=== PATIENT | male | born 1945 | race Caucasian/White ===

== ENCOUNTER 2017-09-13 10:58 | Outpatient (CLI) | payer MEDICARE, OTHER ==
[2017-09-13 12:55] LABS: BASOPHILS % (AUTO) 0.4 %; EOSINOPHILS # (AUTO) 0.2 10^3/uL (0.0-0.7); EOSINOPHILS % (AUTO) 4.1 %; HCT - HEMATOCRIT 43.3 % (42.0-52.0); HGB - HEMOGLOBIN 14.7 g/dL (14.0-18.0); LYMPHOCYTES # (AUTO) 1.8 10^3/uL (1.5-3.5); MEAN CORPUSCULAR HEMOGLOBIN 30.6 pg (27.0-31.0); MEAN CORPUSCULAR HGB CONC 33.8 g/dL (32.0-36.0); MEAN CORPUSCULAR VOLUME 90.5 fL (80.0-94.0); MEAN PLATELET VOLUME 8.1 fL (7.4-11.4); MONOCYTES # (AUTO) 0.5 10^3/uL (0.0-1.0); MONOCYTES % (AUTO) 9.1 %; NEUTROPHILS # (AUTO) 3.2 10^3/uL (1.5-6.6); NEUTROPHILS % (AUTO) 55.4 %; NUCLEATED RED BLOOD CELLS AUTO 0.1 /100WBC; RED BLOOD COUNT 4.79 10^6/uL (4.70-6.10); RED CELL DISTRIBUTION WIDTH 13.3 % (12.0-15.0); UNCORRECTED WHITE BLOOD COUNT 5.8 x10^3/uL; WHITE BLOOD COUNT 5.8 x10^3/uL (4.8-10.8)
[2017-09-13 13:28] LABS: ALBUMIN/GLOBULIN RATIO 1.3 (1.0-2.2); BILIRUBIN,TOTAL 0.8 mg/dL (0.2-1.0); BUN - BLOOD UREA NITROGEN 16 mg/dL (6-20); CALCIUM 9.4 mg/dL (8.5-10.3); CARBON DIOXIDE - CO2 25 mmol/L (21-32); CHLORIDE 101 mmol/L (101-111); CHOL/HDL RATIO 4.3 (<5.0); CHOLESTEROL 189 mg/dL; GFR - MDRD 74 (>89); GLUCOSE 117 mg/dL (70-100); HDL CHOLESTEROL 44 mg/dL; LDL/HDL RATIO 2.8 (<3.6); POTASSIUM 3.9 mmol/L (3.5-5.0); SODIUM 136 mmol/L (135-145); TOTAL PROTEIN 7.8 g/dL (6.7-8.2); TRIGLYCERIDES 111 mg/dL; VLDL CHOLESTEROL 22 mg/dL
== END 2017-09-13 10:59 | disposition home or self-care (01) ==
LOC: LAB.WCP 10:58
PROVIDERS: ATTEND Family Medicine
DX: Z00.00 Encounter for general adult medical examination without abnormal findings (principal); E78.5 Hyperlipidemia, unspecified; Z12.5 Encounter for screening for malignant neoplasm of prostate
CPT/HCPCS: 36415; 80053; 80061; 84443; 85025; G0103; 84153

== ENCOUNTER → 2018-09-03 | Outpatient (CLI) | payer MEDICARE, OTHER ==
[2018-09-03 12:54] LABS: BASOPHILS % (AUTO) 0.6 %; EOSINOPHILS # (AUTO) 0.3 10^3/uL (0.0-0.7); EOSINOPHILS % (AUTO) 4.8 %; HGB - HEMOGLOBIN 14.1 g/dL (14.0-18.0); LYMPHOCYTES # (AUTO) 1.3 10^3/uL (1.5-3.5); LYMPHOCYTES % (AUTO) 24.8 %; MEAN CORPUSCULAR HEMOGLOBIN 32.2 pg (27.0-31.0); MEAN CORPUSCULAR HGB CONC 34.8 g/dL (32.0-36.0); MEAN CORPUSCULAR VOLUME 92.5 fL (80.0-94.0); MEAN PLATELET VOLUME 8.1 fL (7.4-11.4); MONOCYTES # (AUTO) 0.5 10^3/uL (0.0-1.0); MONOCYTES % (AUTO) 8.9 %; NEUTROPHILS # (AUTO) 3.3 10^3/uL (1.5-6.6); NEUTROPHILS % (AUTO) 60.9 %; PLT - PLATELET COUNT 190 10^3/uL (130-450); RED BLOOD COUNT 4.38 10^6/uL (4.70-6.10); RED CELL DISTRIBUTION WIDTH 13.6 % (12.0-15.0); WHITE BLOOD COUNT 5.4 x10^3/uL (4.8-10.8)
[2018-09-03 13:48] LABS: HB2 TOTAL 15.3 g/dL; HEMOGLOBIN A1C 0.58 g/dL; HEMOGLOBIN A1C % 5.6 % (4.6-6.2)
[2018-09-03 13:53] LABS: ALBUMIN 4.1 g/dL (3.2-5.5); ALBUMIN/GLOBULIN RATIO 1.2 (1.0-2.2); ALKALINE PHOSPHATASE 68 IU/L (42-121); ALT ALANINE AMINOTRANSFERASE 33 IU/L (10-60); AST ASPARTATE AMINOTRANSFERASE 33 IU/L (10-42); BILIRUBIN,TOTAL 1.1 mg/dL (0.2-1.0); BUN - BLOOD UREA NITROGEN 16 mg/dL (6-20); CALCIUM 9.3 mg/dL (8.5-10.3); CARBON DIOXIDE - CO2 27 mmol/L (21-32); CHLORIDE 102 mmol/L (101-111); CHOL/HDL RATIO 4.5 (<5.0); CHOLESTEROL 178 mg/dL; CREATININE 1.1 mg/dL (0.6-1.2); GFR - MDRD 66 (>89); GLUCOSE 116 mg/dL (70-100); HDL CHOLESTEROL 40 mg/dL; LDL CHOLESTEROL,CALCULATED 113 mg/dL; LDL/HDL RATIO 2.8 (<3.6); SODIUM 139 mmol/L (135-145); TOTAL PROTEIN 7.4 g/dL (6.7-8.2); VLDL CHOLESTEROL 25 mg/dL
== END ==
LOC: LAB.WCP 08:00
PROVIDERS: ATTEND Family Medicine
DX: R73.01 Impaired fasting glucose (principal); E78.5 Hyperlipidemia, unspecified; Z12.5 Encounter for screening for malignant neoplasm of prostate; Z72.0 Tobacco use
CPT/HCPCS: 36415; 80053; 80061; 83036; 85025; G0103; 83721; 84153

== ENCOUNTER 2018-09-19 08:05 | Outpatient (CLI) | payer MEDICARE, OTHER ==
--- NOTE | 2018-09-19 09:39 | Ultrasound Report ---
Reason: TESTICULAR MASS, RIGHT Procedure Date: 09/19/2018 Accession Number: [id number] / [id number] Procedure: US - Testicle CPT Code: FULL RESULT: EXAM: SCROTAL ULTRASOUND EXAM DATE: 09/19/2018 09:12 AM. CLINICAL HISTORY: TESTICULAR MASS, RIGHT. COMPARISON: None. TECHNIQUE: Real-time scanning was performed with static images obtained. Color-flow images were utilized. FINDINGS: Right: Testis: 5.6 x 2.8 x 3.9 cm. Normal size and echotexture. No mass, calcification, or abnormal blood flow. Epididymis: 2.9 x 0.6 x 1.0 cm. Appendix epididymis is noted, variant of normal. Normal size and echotexture. No abnormal mass or abnormal blood flow. Hydrocele: Small hydrocele. Varicocele: None detected. Left: Testis: 5.4 x 2.6 x 3.8 cm. Normal size and echotexture. No mass, calcification, or abnormal blood flow. Epididymis: 2.9 x 1.0 x 2.0 cm. Normal size and echotexture. No mass or abnormal blood flow. Hydrocele: Hydrocele, small. 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 IMPRESSION: The reported right testicular mass may be accounted for by the appendix epididymis detected on the right, a normal variant. Bilateral small hydroceles and prominent left pampiniform plexus, which does not significantly enlarge with Valsalva maneuver. Clinically correlate to sensation of fullness/heaviness or dull testicular pain. If symptomatic, consideration can be given to referral for IR sclerotherapy or urologic surgical treatment. RADIA
== END 2018-09-19 08:06 | disposition home or self-care (01) ==
LOC: DI 08:05
PROVIDERS: ATTEND Family Medicine
DX: N43.3 Hydrocele, unspecified (principal)
CPT/HCPCS: 76870

== ENCOUNTER 2019-02-16 08:35 | Day surgery (SDC) | payer MEDICARE, OTHER ==
[2019-02-16] MEDS ORDERED: LACTATED RINGERS 1,000 ML IV ONE (09:08)
[2019-02-16] MEDS ORDERED: fentaNYL 250 MCG/5 ML VIAL IVP ONE (09:21)
[2019-02-16] MEDS ORDERED: MIDAZOLAM 2 MG/2 ML VIAL IVP ONE (09:21)
[2019-02-16 10:22] VITALS: BP 114/85
== END 2019-02-16 08:36 | disposition home or self-care (01) ==
LOC: SDS 08:35
PROVIDERS: ATTEND Surgery
PROC: 0DBP8ZZ Excision of Rectum, Via Natural or Artificial Opening Endoscopic (ICD-10-PCS; principal; 2019-02-16 10:00)
DX: Z12.11 Encounter for screening for malignant neoplasm of colon (principal); D12.8 Benign neoplasm of rectum; K57.30 Diverticulosis of large intestine without perforation or abscess without bleeding; K64.8 Other hemorrhoids; K21.9 Gastro-esophageal reflux disease without esophagitis; E78.00 Pure hypercholesterolemia, unspecified; Z87.891 Personal history of nicotine dependence; Z79.82 Long term (current) use of aspirin
CPT/HCPCS: 45380; J3010; J7120

== ENCOUNTER 2019-03-17 07:55 | Outpatient (CLI) | payer MEDICARE, OTHER ==
[2019-03-17 13:13] LABS: PSA FREE 0.57 ng/mL (0.16-2.81)
[2019-03-17 13:14] LABS: PSA TOTAL 3.25 ng/mL (0.000-2.000)
[2019-03-18 13:11] LABS: HEPATITIS C ANTIBODY NON-REACTIVE (NON-REACTIVE)
== END 2019-03-17 07:56 | disposition home or self-care (01) ==
LOC: LAB.WCP 07:55
PROVIDERS: ATTEND Family Medicine
DX: R97.20 Elevated prostate specific antigen [PSA] (principal); Z78.9 Other specified health status
CPT/HCPCS: 36415; 84153; 84154; 86803

== ENCOUNTER 2020-06-09 08:00 | Outpatient (CLI) | payer MEDICARE, OTHER ==
[2020-06-09 11:26] LABS: BASOPHILS % (AUTO) 0.4 %; EOSINOPHILS # (AUTO) 0.2 10^3/uL (0.0-0.7); EOSINOPHILS % (AUTO) 3.2 %; HGB - HEMOGLOBIN 13.5 g/dL (14.0-18.0); LYMPHOCYTES # (AUTO) 1.5 10^3/uL (1.5-3.5); LYMPHOCYTES % (AUTO) 20.6 %; MEAN CORPUSCULAR HEMOGLOBIN 31.9 pg (27.0-31.0); MEAN CORPUSCULAR HGB CONC 32.8 g/dL (32.0-36.0); MEAN CORPUSCULAR VOLUME 97.4 fL (80.0-94.0); MEAN PLATELET VOLUME 10.2 fL (7.4-11.4); MONOCYTES # (AUTO) 0.6 10^3/uL (0.0-1.0); MONOCYTES % (AUTO) 8.1 %; NEUTROPHILS % (AUTO) 67.3 %; PLT - PLATELET COUNT 174 10^3/uL (130-450); RED BLOOD COUNT 4.23 10^6/uL (4.70-6.10); RED CELL DISTRIBUTION WIDTH 12.9 % (12.0-15.0); WHITE BLOOD COUNT 7.4 x10^3/uL (4.8-10.8)
[2020-06-09 12:07] LABS: ALBUMIN/GLOBULIN RATIO 1.2 (1.0-2.2); ALKALINE PHOSPHATASE 63 IU/L (42-121); ALT ALANINE AMINOTRANSFERASE 31 IU/L (10-60); AST ASPARTATE AMINOTRANSFERASE 30 IU/L (10-42); BILIRUBIN,TOTAL 0.5 mg/dL (0.2-1.0); BUN - BLOOD UREA NITROGEN 24 mg/dL (6-20); CALCIUM 9.3 mg/dL (8.5-10.3); CARBON DIOXIDE - CO2 26 mmol/L (21-32); CHLORIDE 106 mmol/L (101-111); CHOL/HDL RATIO 2.7 (<5.0); CHOLESTEROL 160 mg/dL; GLUCOSE 115 mg/dL (70-100); HDL CHOLESTEROL 60 mg/dL; LDL CHOLESTEROL,CALCULATED 89 mg/dL; LDL/HDL RATIO 1.5 (<3.6); SODIUM 141 mmol/L (135-145); TOTAL PROTEIN 7.4 g/dL (6.7-8.2); VLDL CHOLESTEROL 11 mg/dL
[2020-06-09 12:18] LABS: HB2 TOTAL 14.2 g/dL; HEMOGLOBIN A1C 0.54 g/dL; HEMOGLOBIN A1C % 5.6 % (4.6-6.2)
== END 2020-06-09 23:59 | disposition home or self-care (01) ==
LOC: LAB.WCP 08:00
PROVIDERS: ATTEND Family Medicine
DX: R73.01 Impaired fasting glucose (principal); E78.5 Hyperlipidemia, unspecified; R97.20 Elevated prostate specific antigen [PSA]; Z79.899 Other long term (current) drug therapy
CPT/HCPCS: 36415; 80053; 80061; 83036; 83721; 84153; 85025

== ENCOUNTER 2020-12-27 08:00 | Outpatient (CLI) | payer MEDICARE, OTHER | END 2020-12-27 23:59 | disposition home or self-care (01) | LOC: LAB.WCP 08:00 | PROVIDERS: ATTEND Nurse Practitioner Family | DX: R97.20 Elevated prostate specific antigen [PSA] (principal) | CPT/HCPCS: 36415; 84153 ==

== ENCOUNTER 2021-08-21 08:25 | Outpatient (CLI) | payer MEDICARE, OTHER ==
[2021-08-21 13:39] LABS: BASOPHILS % (AUTO) 0.8 %; EOSINOPHILS # (AUTO) 0.2 10^3/uL (0.0-0.7); EOSINOPHILS % (AUTO) 3.9 %; HCT - HEMATOCRIT 42.6 % (42.0-52.0); HGB - HEMOGLOBIN 13.7 g/dL (14.0-18.0); LYMPHOCYTES # (AUTO) 1.3 10^3/uL (1.5-3.5); LYMPHOCYTES % (AUTO) 25.9 %; MEAN CORPUSCULAR HEMOGLOBIN 31.4 pg (27.0-31.0); MEAN CORPUSCULAR HGB CONC 32.2 g/dL (32.0-36.0); MEAN CORPUSCULAR VOLUME 97.7 fL (80.0-94.0); MEAN PLATELET VOLUME 9.4 fL (7.4-11.4); MONOCYTES # (AUTO) 0.5 10^3/uL (0.0-1.0); MONOCYTES % (AUTO) 10.4 %; NEUTROPHILS % (AUTO) 58.4 %; PLT - PLATELET COUNT 214 10^3/uL (130-450); RED BLOOD COUNT 4.36 10^6/uL (4.70-6.10); RED CELL DISTRIBUTION WIDTH 13.5 % (12.0-15.0); WHITE BLOOD COUNT 5.1 x10^3/uL (4.8-10.8)
[2021-08-21 13:56] LABS: ALBUMIN 4.2 g/dL (3.2-5.5); ALBUMIN/GLOBULIN RATIO 1.1 (1.0-2.2); ALKALINE PHOSPHATASE 66 IU/L (42-121); ALT ALANINE AMINOTRANSFERASE 39 IU/L (10-60); AST ASPARTATE AMINOTRANSFERASE 32 IU/L (10-42); BILIRUBIN,TOTAL 0.9 mg/dL (0.2-1.0); BUN - BLOOD UREA NITROGEN 13 mg/dL (6-20); CALCIUM 9.8 mg/dL (8.5-10.3); CARBON DIOXIDE - CO2 28 mmol/L (21-32); CHLORIDE 101 mmol/L (101-111); CHOL/HDL RATIO 2.2 (<5.0); CHOLESTEROL 192 mg/dL; CREATININE 0.9 mg/dL (0.6-1.2); GFR - MDRD 83 (>89); GLUCOSE 112 mg/dL (70-100); HDL CHOLESTEROL 86 mg/dL; LDL CHOLESTEROL,CALCULATED 83 mg/dL; POTASSIUM 4.1 mmol/L (3.5-5.0); SODIUM 141 mmol/L (135-145); TRIGLYCERIDES 115 mg/dL; VLDL CHOLESTEROL 23 mg/dL
[2021-08-21 14:01] LABS: THYROID STIMULATING HORMONE 5.19 uIU/mL (0.34-5.60)
== END 2021-08-21 23:59 | disposition home or self-care (01) ==
LOC: LAB.WCP 08:25
PROVIDERS: ATTEND Family Medicine
DX: E66.9 Obesity, unspecified (principal); E78.5 Hyperlipidemia, unspecified; R73.01 Impaired fasting glucose; R97.20 Elevated prostate specific antigen [PSA]
CPT/HCPCS: 36415; 80053; 80061; 83721; 84153; 84443; 85025

== ENCOUNTER 2023-01-12 11:53 | Outpatient (CLI) | payer MEDICARE, OTHER ==
--- NOTE | 2023-01-12 12:55 | XRAY Report ---
PROCEDURE: Wrist 4 View LT INDICATIONS: WRIST PAIN,LFT TECHNIQUE: 4 views of the wrist were acquired. COMPARISON: None FINDINGS: Bones: Oblique lucency through the distal radius without significant displacement only seen on the P A view. Questionable linear lucency in the neck of the scaphoid best seen on the oblique view. No hari picious bony lesions. Moderate osteoarthritic changes of the first carpometacarpal/triscaphe joint. Soft tissues: Mild edema of the wrist. IMPRESSION: Cortical irregularities of the distal radius and scaphoid are concerning for fractures. Recommend CT for further delineation. Reviewed by: Bar Boyer MD on 01/12/2023 11:54 AM RANDAL Approved by: Bar Boyer MD on 01/12/2023 11:54 AM RANDAL Station ID: [id number]
== END 2023-01-12 11:54 | disposition home or self-care (01) ==
LOC: DI.N 11:53
PROVIDERS: ATTEND Family Medicine
DX: M25.532 Pain in left wrist (principal)

== ENCOUNTER 2023-01-19 07:29 | Outpatient (CLI) | payer MEDICARE, OTHER ==
--- NOTE | 2023-01-21 13:45 | MRI Report ---
PROCEDURE: WRIST WO - LT INDICATIONS: FX OF LEFT WRIST TECHNIQUE: Noncontrast coronal proton density fast spin echo and T2 fast spin echo with fat saturation; coronal 3-D gradient echo, axial T1 spin echo and T2 fast spin echo with fat saturation, sagittal T1 spin ech o through the wrist. COMPARISON: None. FINDINGS: Image quality: Excellent. Bones and cartilage: Imaging findings show a nondisplaced fracture involving the distal left radius w hich appears intra-articular nature with associated marrow edema present. Marrow signal in remaining visualized bones appears within normal limits. There is a moderate to severe osteoarthritic degenerative change involving the first carpal metacarpa l joint. Carpal ligaments: The scapholunate and lunotriquetral ligaments appear intact. In the absence of in tra-articular contrast, the extrinsic carpal ligaments are not well identified. On sagittal images, the pisohamate ligament appears intact. Triangular fibrocartilage complex: The triangular fibrocartilage appears intact. The adjacent menis osiel homolog appears normal in the absence of intra-articular contrast. The extensor carpi ulnaris te ndon is normal in location and morphology. Tendons and soft tissues: The carpal tunnel structures appear normal, including the median nerve. T he ulnar nerve appears normal within Guyon's canal. All six extensor tendon compartments demonstrate normal morphology, without pathologic tendon sheath fluid. No soft tissue ganglion cysts. IMPRESSION: 1. Nondisplaced intra-articular fracture involving the distal left radius with associated marrow chela a present. 2. Moderate to severe osteoarthritic type degenerative change involving the first carpometacarpal katya nt. Reviewed by: Cj De Guzman MD on 01/21/2023 10:06 AM PDT Approved by: Cj De Guzman MD on 01/21/2023 10:06 AM PDT Station ID: [id number]
== END 2023-01-19 07:30 | disposition home or self-care (01) ==
LOC: DI 07:29
PROVIDERS: ATTEND Physician Assistant Surgical
DX: S62.015A Nondisplaced fracture of distal pole of navicular [scaphoid] bone of left wrist, initial encounter for closed fracture (principal); M19.032 Primary osteoarthritis, left wrist

== ENCOUNTER 2023-02-14 08:00 | Outpatient (CLI) | payer MEDICARE, OTHER ==
--- NOTE | 2023-02-15 12:05 | XRAY Report ---
PROCEDURE: Wrist 4 View LT INDICATIONS: LEFT WRIST FRACTURE TECHNIQUE: 4 views of the wrist were acquired. COMPARISON: X-ray left wrist, 01/12/2023 and 01/19/2023. FINDINGS: Bones: There is a healing radial styloid fracture with stable alignment. No suspicious bony lesions . Moderate degenerative joint disease in first carpometacarpal joint and triscaphe joint. Scaphoid view: Scaphoid appears intact. Soft tissues: No suspicious soft tissue calcifications or masses. IMPRESSION: Healing radial styloid fracture. Reviewed by: Jazmin Gambino MD on 02/15/2023 12:04 PM PDT Approved by: Jazmin Gambino MD on 02/15/2023 12:04 PM PDT Station ID: [id number]
== END 2023-02-14 23:59 | disposition home or self-care (01) ==
LOC: DI.WOS 08:00
PROVIDERS: ATTEND Physician Assistant Surgical
DX: S52.512D Displaced fracture of left radial styloid process, subsequent encounter for closed fracture with routine healing (principal); M19.032 Primary osteoarthritis, left wrist

== ENCOUNTER 2023-02-19 08:00 | Outpatient (CLI) | payer MEDICARE, OTHER ==
--- NOTE | 2023-02-19 16:54 | XRAY Report ---
PROCEDURE: Knee 4 View RT INDICATIONS: RIGHT KNEE PAIN TECHNIQUE: 4 views of the right knee(s) were acquired. COMPARISON: None. FINDINGS: Bones: No fractures or dislocations. No suspicious bony lesions. Moderate tricompartmental osteoart hritic degenerative changes noted including mild joint space narrowing and osseous hypertrophy. Soft tissues: Small knee joint effusion. No suspicious soft tissue calcifications or masses. IMPRESSION: Moderate right knee tricompartmental osteoarthritis. Small nonspecific knee joint effusion. Reviewed by: Francia Rizo MD, PhD on 02/19/2023 4:53 PM PDT Approved by: Francia Rizo MD, PhD on 02/19/2023 4:53 PM PDT Station ID: [id number]
== END 2023-02-19 23:59 | disposition home or self-care (01) ==
LOC: DI.WOS 08:00
PROVIDERS: ATTEND Physician Assistant Surgical
DX: M17.11 Unilateral primary osteoarthritis, right knee (principal); M25.461 Effusion, right knee

== ENCOUNTER 2023-08-12 11:29 | Outpatient (CLI) | payer MEDICARE, OTHER | END 2023-08-12 11:30 | disposition home or self-care (01) | LOC: LAB.N 11:29 | PROVIDERS: ATTEND Physician Assistant Medical | DX: R97.20 Elevated prostate specific antigen [PSA] (principal) | CPT/HCPCS: 36415; 84153 ==

== ENCOUNTER 2023-12-02 14:34 | Outpatient (CLI) | payer MEDICARE, OTHER ==
[2023-12-02 18:20] LABS: BASOPHILS % (AUTO) 0.6 %; EOSINOPHILS # (AUTO) 0.2 10^3/uL (0.0-0.7); HCT - HEMATOCRIT 40.5 % (42.0-52.0); HGB - HEMOGLOBIN 13.2 g/dL (14.0-18.0); LYMPHOCYTES # (AUTO) 1.3 10^3/uL (1.5-3.5); LYMPHOCYTES % (AUTO) 18.8 %; MEAN CORPUSCULAR HGB CONC 32.6 g/dL (32.0-36.0); MEAN CORPUSCULAR VOLUME 101.3 fL (80.0-94.0); MEAN PLATELET VOLUME 10.4 fL (7.4-11.4); MONOCYTES # (AUTO) 0.5 10^3/uL (0.0-1.0); MONOCYTES % (AUTO) 6.8 %; NEUTROPHILS # (AUTO) 4.9 10^3/uL (1.5-6.6); NEUTROPHILS % (AUTO) 70.2 %; PLT - PLATELET COUNT 233 10^3/uL (130-450); RED CELL DISTRIBUTION WIDTH 12.4 % (12.0-15.0); WHITE BLOOD COUNT 6.9 x10^3/uL (4.8-10.8)
[2023-12-02 18:46] LABS: ALBUMIN 3.9 g/dL (3.2-5.5); ALBUMIN/GLOBULIN RATIO 1.3 (1.0-2.2); BILIRUBIN,TOTAL 0.5 mg/dL (0.2-1.0); CALCIUM 9.4 mg/dL (8.5-10.3); CREATININE 0.9 mg/dL (0.6-1.3); POTASSIUM 3.5 mmol/L (3.5-4.5)
[2023-12-02 19:00] LABS: THYROID STIMULATING HORMONE 2.86 uIU/mL (0.34-5.60)
== END 2023-12-02 14:35 | disposition home or self-care (01) ==
LOC: LAB.N 14:34
PROVIDERS: ATTEND Physician Assistant
DX: R25.1 Tremor, unspecified (principal)
CPT/HCPCS: 36415; 80053; 84443; 85025

== ENCOUNTER 2024-01-14 17:11 | Outpatient (CLI) | payer MEDICARE, OTHER | END 2024-01-14 23:59 | disposition critical access hospital (66) | LOC: EMS 17:11 | DX: S01.81XA Laceration without foreign body of other part of head, initial encounter (principal); R51.9 Headache, unspecified; R22.0 Localized swelling, mass and lump, head; R42 Dizziness and giddiness; W18.39XA Other fall on same level, initial encounter; Y93.H2 Activity, gardening and landscaping; Y92.017 Garden or yard in single-family (private) house as the place of occurrence of the external cause; F17.210 Nicotine dependence, cigarettes, uncomplicated | CPT/HCPCS: A0425; A0429 ==

== ENCOUNTER 2024-01-14 18:05 | Emergency (ER) | payer MEDICARE, OTHER ==
--- NOTE | 2024-01-14 18:09 | ED Physician Documentation ---
PD HPI HEAD INJURY - Stated complaint Stated Complaint: GLF - History obtained from History obtained from: Patient, EMS - Additional information Additional information: He was working outside and started to feel dizzy and had a mechanical fall forward hitting his head. There was no loss of consciousness. He has a laceration on the right forehead. Tetanus is unknown. He denies headache. No neck pain or other injuries. PD PAST MEDICAL HISTORY - Past Medical History Cardiovascular: High cholesterol Endocrine/Autoimmune: None GI: GERD : Benign prostate hypertrophy HEENT: None Psych: None Musculoskeletal: None Derm: None - Past Surgical History HEENT: Tonsil/Adenoidectomy - Present Medications Home Medications: Ambulatory Orders Medication Instructions Recorded Confirmed Atorvastatin Calcium [Lipitor] 40 mg PO ACHS 02/13/19 01/14/24 Multivitamin [Multiple Vitamins] 1 each PO DAILY 02/13/19 01/14/24 Omeprazole 20 mg PO DAILY 02/13/19 01/14/24 Alfuzosin HCl [Alfuzosin HCl ER] 10 mg PO DAILY PM 01/14/24 01/14/24 Mecobalamin [B12 Active] 1,000 mcg PO DAILY 01/14/24 01/14/24 - Allergies Allergies/Adverse Reactions: Allergies Allergy/AdvReac Type Severity Reaction Status Date / Time No Known Drug Allergies Allergy Verified 02/13/19 14:30 PD ED PE NORMAL - Vitals Vital signs reviewed: Yes - General General: Alert and oriented X 3, No acute distress - HEENT HEENT: PERRL, EOMI, Other (On the right forehead there is really more of an abrasion than a laceration, it is fairly shallow) - Neck Neck: No bony TTP, C-Spine cleared by NEXUS criteria (C-collar on arrival removed on initial evaluation.) - Neuro Neuro: Alert and oriented X 3, mailing specialist 2-12 intact Eye Opening: Spontaneous Motor: Obeys Commands Verbal: Oriented GCS Score: 15 Results - Vitals Vitals: Vital Signs - 24 hr 01/14/24 18:07 Temperature 36.6 C Heart Rate 85 Respiratory 18 Rate Blood Pressure 128/72 O2 Saturation 97 Oxygen O2 Source Room air - Rads (name of study) CT of the head is unremarkable Relevant Findings:: Final report received, EMP independent interpretation of test Procedures - Laceration (location) 4 cm long abrasion on the right forehead was irrigated and closed with Dermabond Length in cm: 4 Wound type: Other (4 cm long abrasion on the right forehead was irrigated and closed with Dermabond) Departure - Departure Disposition: 01 Home, Self Care Clinical Impression: Head injury, Forehead abrasion Condition: Good Record reviewed to determine appropriate education?: Yes Instructions: ED Head Injury Closed Comments: CAT scan of the head without concerning signs of trauma. You can wash the glued area with soap and water and just keep it clean and dry otherwise. Do not pick at it. Return if worse.
[2024-01-14 18:22] VITALS: BP 128/72; O2SAT 97
[2024-01-14] MEDS: SODIUM CHLORIDE 0.9% 1,000 ML IV STA (18:22)
[2024-01-14] MEDS: TETANUS/DIPHTHERIA/PERTUSSIS 0.5 ML SYRINGE IM ONE (18:34)
--- NOTE | 2024-01-14 18:57 | CT Report ---
PROCEDURE: Head WO INDICATIONS: head inj TECHNIQUE: Noncontrast 4.5 mm thick angled axial sections acquired from the foramen magnum to the vertex. For r adiation dose reduction, the following was used: automated exposure control, adjustment of mA and/or kV according to patient size. COMPARISON: None. FINDINGS: Image quality: Excellent. CSF spaces: Basal cisterns are patent. No extra-axial fluid collections. Ventricles are normal in size and shape. Brain: No midline shift. No intracranial masses or hemorrhage. No mass effect. Wall-white matter in terface is normal. There cerebral volume loss for age with resultant ventricular and sulcal prominenc e. There are periventricular and deep white matter chronic small vessel ischemic changes. Atheroscler otic calcifications are noted in the intracranial segments of the bilateral internal carotid arteries . Skull and face: Calvarium and visualized facial bones are intact, without suspicious lesions. Sinuses: Visualized sinuses and mastoids are clear. IMPRESSION: CT head without acute intracranial abnormalities or acute calvarial fractures. Age-related senescent changes and sequela of chronic small vessel ischemic disease. Reviewed by: Reilly Hernandez MD on 01/14/2024 6:56 PM PDT Approved by: Reilly Hernandez MD on 01/14/2024 6:56 PM PDT Station ID: [id number]
== END 2024-01-14 19:20 | disposition home or self-care (01) ==
LOC: EDUNIT# → ED 18:05
DX: S01.81XA Laceration without foreign body of other part of head, initial encounter (principal); S09.90XA Unspecified injury of head, initial encounter; W18.39XA Other fall on same level, initial encounter; Y93.H9 Activity, other involving exterior property and land maintenance, building and construction
CPT/HCPCS: 12002; 90471; 99284

== ENCOUNTER 2024-02-12 07:16 | Outpatient (CLI) | payer MEDICARE, OTHER ==
[2024-02-12 11:51] LABS: BASOPHILS % (AUTO) 0.5 %; EOSINOPHILS # (AUTO) 0.2 10^3/uL (0.0-0.7); EOSINOPHILS % (AUTO) 3.1 %; HCT - HEMATOCRIT 41.8 % (42.0-52.0); HGB - HEMOGLOBIN 13.7 g/dL (14.0-18.0); LYMPHOCYTES # (AUTO) 1.1 10^3/uL (1.5-3.5); LYMPHOCYTES % (AUTO) 18.6 %; MEAN CORPUSCULAR HEMOGLOBIN 32.9 pg (27.0-31.0); MEAN CORPUSCULAR HGB CONC 32.8 g/dL (32.0-36.0); MEAN CORPUSCULAR VOLUME 100.2 fL (80.0-94.0); MEAN PLATELET VOLUME 9.9 fL (7.4-11.4); MONOCYTES # (AUTO) 0.6 10^3/uL (0.0-1.0); MONOCYTES % (AUTO) 9.7 %; NEUTROPHILS % (AUTO) 67.8 %; PLT - PLATELET COUNT 187 10^3/uL (130-450); RED BLOOD COUNT 4.17 10^6/uL (4.70-6.10); RED CELL DISTRIBUTION WIDTH 12.8 % (12.0-15.0); WHITE BLOOD COUNT 5.9 x10^3/uL (4.8-10.8)
[2024-02-12 12:12] LABS: ALBUMIN 4.1 g/dL (3.2-5.5); ALBUMIN/GLOBULIN RATIO 1.1 (1.0-2.2); ALKALINE PHOSPHATASE 91 IU/L (42-121); ALT ALANINE AMINOTRANSFERASE 43 IU/L (10-60); AST ASPARTATE AMINOTRANSFERASE 37 IU/L (10-42); BILIRUBIN,TOTAL 0.8 mg/dL (0.2-1.0); BUN - BLOOD UREA NITROGEN 10 mg/dL (6-20); CALCIUM 10.3 mg/dL (8.5-10.3); CARBON DIOXIDE - CO2 31 mmol/L (21-32); CHLORIDE 103 mmol/L (101-111); CREATININE 0.8 mg/dL (0.6-1.3); CRP - C-REACTIVE PROTEIN < 0.5 mg/dL (<0.5); GFR - MDRD 94 (>89); GLUCOSE 119 mg/dL (74-104); POTASSIUM 4.2 mmol/L (3.5-4.5); SODIUM 139 mmol/L (135-145); TOTAL PROTEIN 7.7 g/dL (6.4-8.9)
[2024-02-12 12:29] LABS: THYROID STIMULATING HORMONE 3.68 uIU/mL (0.34-5.60)
== END 2024-02-12 07:17 | disposition home or self-care (01) ==
LOC: LAB.N 07:16
PROVIDERS: ATTEND Nurse Practitioner
DX: R61 Generalized hyperhidrosis (principal); F10.20 Alcohol dependence, uncomplicated; N50.9 Disorder of male genital organs, unspecified
CPT/HCPCS: 36415; 80053; 82607; 82746; 84153; 84443; 85025; 85651; 86140

== ENCOUNTER 2024-04-06 12:21 | Outpatient (CLI) | payer MEDICARE, OTHER | END 2024-04-06 12:22 | disposition home or self-care (01) | LOC: DI 12:21 | PROVIDERS: ATTEND Nurse Practitioner | DX: I35.0 Nonrheumatic aortic (valve) stenosis (principal); R55 Syncope and collapse | CPT/HCPCS: 93307 ==